=== PATIENT | female | born 1970 | race Two or more races ===

== ENCOUNTER → 2019-02-12 | Outpatient (CLI) | payer OTHER ==
--- NOTE | 2019-02-16 09:47 | PATHOLOGY ---
[facility] Accession Number: [id number] . 01 Material submitted: . breast - LEFT BREAST 8:00. Modifiers: left, 8:00 . 01 Clinical history: . Left breast mass, 8:00 . 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 - Size of invasive component: 1.0 cm, at least. - No in situ component identified. . (Please see comment) . (SKM:sarthak; 02/15/2019) QMS/02/15/2019 . 02 Comment: The findings in this case were discussed with Dr. Colbert on 02/15/2019. . Breast prognostic studies have been ordered on the tumor present in block A3. The results will be issued in an addendum report. . This case has also been reviewed by Dr. Josep Stark M.D., who agrees with the diagnosis. . (SKM:sarthak; 02/15/2019) . 02 Electronically signed: . Matthew Wei MD, Pathologist NPI- [id number] . 01 Gross description: . The specimen is received in formalin, labeled "Deloris Oconnor, left breast", are multiple fibrofatty cores and its fragments measuring 1.7 x 0.7 x 0.2 cm in aggregate. The specimen is entirely submitted in A1-A3. . Specimen excised at: 0839 on 02/12/19, placed in formalin at: 0842 on 02/12/19, formalin exposure: Approximately 15 hours. ([facility]; 02/12/2019) [facility] . 02 Pathologist provided ICD-10: C50.912 . 02 CPT . 324264 Specimen Comment: A courtesy copy of this report has been sent to Specimen Comment: [phone], . Specimen Comment: Report sent to / DR XENIA OBRIEN Performed at: 01 [facility] [address] [facility] [address], [place] [id number] MD Shaheed Cardoso MD Phone: [phone] Performed at: 02 [facility] [address] [place], [place] [id number] MD Jose Cruz Lazaro MD Phone: [phone]
--- NOTE | 2019-02-16 09:47 | RAD ---
Ultrasound-guided left breast biopsy, 02/12/2019: History: Suspicious breast nodule Previous imaging demonstrated a suspicious nodule at 8:00 location in the left breast. Under local anesthesia, aseptic conditions and sonographic guidance the [employer] biopsy instrument was passed into the posterior aspect of this nodule via a medial approach. Multiple 12-gauge vacuum-assisted core samples were obtained. A biopsy marker was then deposited at the biopsy site. The biopsy instrument was removed and hemostasis obtained. Two-view postprocedural digital mammograms were then obtained to document position of the biopsy marker. It corresponds in location to the more anteriorly located nodule seen on the 05/27/2018 mammograms. There are minimal new opacities at the biopsy site compatible with mild biopsy associated hemorrhage. An additional separate nodule is again seen more posteriorly in the left breast, also evident on 05/27/2018 exam. We do not currently have access to older mammograms to determine whether this a truly stable nodule. Mildly prominent axillary lymph nodes are partially visualized on the current oblique mammogram. The patient tolerated the procedure well and left the department in good condition. The subsequent pathology report indicated the presence of invasive poorly differentiated ductal carcinoma. This is considered to be a concordant finding. IMPRESSION: 1. The biopsy of the left breast nodule at 8:00 location indicated invasive breast malignancy. 2. Persistent separate breast nodule in the posterior aspect of the left breast as well as mildly prominent left axillary lymph nodes. Breast MR may be useful for further evaluation. Note: The pathologic findings were called to the provider, Becca Celeste, at 9:19 AM on 02/16/2019
== END | disposition home or self-care (01) ==
LOC: US 07:23 → EDUNIT# 07:30
PROVIDERS: ATTEND Nurse Practitioner
DX: C50.312 Malignant neoplasm of lower-inner quadrant of left female breast (principal)
CPT/HCPCS: 19083; 77065; C1713; 19081; 76942; 88305; 88361